=== PATIENT | female | born 1990 | race Caucasian/White ===

== ENCOUNTER → 2018-02-04 | Outpatient (REF) | payer OTHER | LOC: M LAB REF 12:53 | PROVIDERS: ATTEND Physician Assistant | DX: J03.90 Acute tonsillitis, unspecified (principal) ==

== ENCOUNTER → 2019-10-08 | Outpatient (CLI) | payer OTHER ==
--- NOTE | 2019-11-15 16:17 | REP ---
FOCUSED RIGHT BREAST ULTRASOUND: HISTORY: Right breast cyst. FINDINGS: Scanning is performed at 9 o'clock in the right breast in the area of a palpable lump. Six cm from the nipple, there is a small lymph node measuring 1.1 x 0.6 x 0.2 cm. This has central hilar echogenic fatty texture and a thin cortical margin. It has benign features. IMPRESSION: BI-RADS Category 2 benign findings. Clinical follow-up is advised. JUS
--- NOTE | 2019-11-15 16:18 | REP ---
PELVIC ULTRASOUND INCLUDING TRANSABDOMINAL, ENDOVAGINAL, AND DOPPLER ULTRASOUND ASSESSMENT Delay in reporting results from hospital computer system malfunction from malware/ ransomware. The study is performed for irregular menses. FINDINGS: The uterus is anteverted and normal size measuring 9.0 x 3.5 x 4.3 cm. The endometrium is not thickened measuring 7.8 mm. However, there is free fluid in the endocervical canal. The anterior wall of the cervix measures 8.4 mm thickness and posterior wall 7.8 mm. thickness. I suspect the cervix is diffusely thickened. I would recommend gynecology consultation for further evaluation. The right ovary measures 4.7 x 3.9 x 2.9 cm and is upper normal in size. There is a right ovarian cyst measuring 2.5 x 2.4 x 1.8 cm. There is vascular flow in the right ovary with the Doppler resistive index in the parenchymal arteries measuring 0.62. The left ovary measures 2.9 x 1.8 x 2.9 cm and is normal size. There is no dominant mass or cyst. There is vascular flow with the Doppler resistive index in the parenchymal arteries measuring 0.55. There is a small amount of free fluid in the pelvis. IMPRESSION: Probable diffuse enlargement or hypertrophy of the cervix. I would recommend gynecology follow-up for further evaluation. There is free fluid in the endocervical canal. There a right ovarian cyst maximally measuring 2.5 cm and there is a small volume of free fluid in the pelvis. Otherwise, negative pelvic ultrasound. MTDD
== END ==
LOC: M WHC 07:31
PROVIDERS: ATTEND Advanced Practice Midwife
DX: N92.6 Irregular menstruation, unspecified (principal); N60.01 Solitary cyst of right breast; N83.201 Unspecified ovarian cyst, right side

== ENCOUNTER → 2019-10-08 | Outpatient (REF) | payer OTHER | LOC: M SFHCWAGY 12:56 | PROVIDERS: ATTEND Advanced Practice Midwife | DX: Z12.4 Encounter for screening for malignant neoplasm of cervix (principal) ==

== ENCOUNTER → 2019-11-12 | Outpatient (CLI) | payer OTHER ==
[2019-11-12 18:03] LABS: BASO % 0.4 % (0.0-1.0); EOS # 0.1 10^3/uL (0.0-0.5); EOS % 0.6 % (0.0-3.0); HEMATOCRIT 38.4 % (36.0-47.0); LYMPH % 30.4 % (24.0-44.0); MEAN CORPUSCULAR HEMOGLOBIN 31.1 pg (27.0-33.0); MEAN CORPUSCULAR HGB CONC 33.9 g/dl (32.0-36.5); MEAN CORPUSCULAR VOLUME 91.9 fl (80.0-96.0); MONO % 9.9 % (0.0-5.0); NEUTROPHILS # 5.8 10^3/uL (1.5-8.5); NEUTROPHILS % 58.4 % (36.0-66.0); PLATELET COUNT, AUTOMATED 243 10^3/uL (150-450); RED BLOOD COUNT 4.18 10^6/uL (4.00-5.40)
[2019-11-12 19:07] LABS: HEPATITIS C VIRUS ABY INDEX 0.1 INDEX (<0.8); HIV 1&2 SCREEN CENTAUR NEGATIVE (NEGATIVE)
[2019-11-13 21:45] LABS: CHLAMYDIA DNA AMPLIFICATION NEGATIVE (NEGATIVE); GC DNA AMPLIFICATION NEGATIVE (NEGATIVE)
== END ==
LOC: M PLALAB 15:44
PROVIDERS: ATTEND Specialist
DX: Z34.91 Encounter for supervision of normal pregnancy, unspecified, first trimester (principal); Z3A.00 Weeks of gestation of pregnancy not specified

== ENCOUNTER → 2020-02-06 | Outpatient (CLI) | payer OTHER ==
--- NOTE | 2020-02-06 12:35 | REP ---
INDICATION: ANATOMY. COMPARISON: None. TECHNIQUE: Multiple ultrasonographic images of the gravid uterus. FINDINGS: There is a single intrauterine gestation in a breech presentation. The placenta is right lateral with grade 1 maturity. There is no placenta previa. The placental umbilical cord insertion is identified and is located centrally on the placenta. There 3 vessels in the umbilical cord. The umbilical cord insertion is unremarkable. heart rate is 160 beats per minute. The amniotic fluid volume subjectively is normal. The composite ultrasound gestational age today is 21 weeks 1 day with an JOSIE of 06/24/2020. The LMP is unknown. Estimated weight is 332 g, 0 lb-11 oz. This is the 97th percentile for 19 weeks 1 day. The following anatomic structures are identified and are unremarkable: Cranium, cavum septum pellucidum, falx, intracranial ventricles, choroid plexus, cerebellum, cisterna magna, facial profile, orbits, upper lip, cardiac rhythm, cardiac right and left ventricular outflow tracts, diaphragm, stomach, abdominal wall, right and left kidneys, bladder, spine, right and left upper extremities, right and left lower extremities, 3 vessel cord. There is an echogenic focus within the cardiac left ventricle. This is usually artifact from the chorda tendineae. The four-chamber view of the heart is otherwise unremarkable. IMPRESSION: Intrauterine gestation as described. <Electronically signed by Rubio Cruz > 02/06/20 [id number]
== END ==
LOC: M WHC 09:16
PROVIDERS: ATTEND Advanced Practice Midwife
DX: Z34.92 Encounter for supervision of normal pregnancy, unspecified, second trimester (principal); Z3A.21 21 weeks gestation of pregnancy

== ENCOUNTER → 2020-02-07 | Outpatient (REF) | payer OTHER | LOC: M SFHCWAGY 16:47 | PROVIDERS: ATTEND Advanced Practice Midwife | DX: Z3A.17 17 weeks gestation of pregnancy (principal) ==

== ENCOUNTER → 2020-03-06 | Outpatient (CLI) | payer OTHER | LOC: M PLALAB 15:43 | PROVIDERS: ATTEND Obstetrics & Gynecology | DX: Z34.82 Encounter for supervision of other normal pregnancy, second trimester (principal); Z3A.00 Weeks of gestation of pregnancy not specified ==

== ENCOUNTER → 2020-04-10 | Outpatient (REF) | payer OTHER ==
[2020-04-10 14:07] LABS: HEMATOCRIT 34.2 % (36.0-47.0); HEMOGLOBIN 11.3 g/dl (12.0-15.5); MEAN CORPUSCULAR HEMOGLOBIN 31.4 pg (27.0-33.0); PLATELET COUNT, AUTOMATED 179 10^3/uL (150-450); WHITE BLOOD COUNT 11.2 10^3/uL (4.0-10.0)
== END ==
LOC: M PLALAB 10:19
PROVIDERS: ATTEND Advanced Practice Midwife
DX: Z3A.25 25 weeks gestation of pregnancy (principal)

== ENCOUNTER → 2020-06-06 | Outpatient (REF) | payer OTHER ==
[~2020-06-06] MED LIST: COLA100C5 PO; GNP28TAB2 PO; IBUP80TA PO; PERC5TAB12 PO; TUMS500C PO
== END ==
LOC: M SFHCWAGY 17:20
PROVIDERS: ATTEND Advanced Practice Midwife
DX: Z36.89 Encounter for other specified antenatal screening (principal)

== ENCOUNTER → 2021-09-10 | Outpatient (CLI) | payer OTHER ==
[~2021-09-10] MED LIST changes: +PERCOCET PO
[2021-09-12 18:07] LABS: IgG P18 AB Absent (.); IgG P23 AB Absent (.); IgG P28 AB Absent (.); IgG P30 AB Absent (.); IgG P39 AB Absent (.); IgG P41 AB Present (.); IgG P45 AB Absent (.); IgG P66 AB Absent (.); IgG P93 AB Absent (.); IgM P23 AB Absent (.); IgM P39 AB Absent (.); IgM P41 AB Absent (.); LYME IgG WB INTERPRETATION Negative (.); LYME IgM WB INTERPRETATION Negative (.)
== END ==
LOC: M LAB 16:57
DX: A69.20 Lyme disease, unspecified (principal)

== ENCOUNTER → 2021-10-13 | Outpatient (CLI) | payer OTHER | LOC: M LAB 11:03 | PROVIDERS: ATTEND Dermatology | DX: A69.20 Lyme disease, unspecified (principal) ==

== ENCOUNTER → 2022-04-15 | Outpatient (REF) | payer OTHER | LOC: M SFHCWAGY 13:04 | PROVIDERS: ATTEND Nurse Practitioner Family | DX: Z12.4 Encounter for screening for malignant neoplasm of cervix (principal) ==

== ENCOUNTER → 2022-08-26 | Outpatient (CLI) | payer OTHER ==
[2022-08-26 14:54] LABS: HEMOGLOBIN 13.2 g/dl (12.0-15.5); MEAN CORPUSCULAR VOLUME 90.9 fl (80.0-96.0); PLATELET COUNT, AUTOMATED 239 10^3/uL (150-450); WHITE BLOOD COUNT 7.6 10^3/uL (4.0-10.0)
[2022-08-26 15:20] LABS: HIV 1&2 SCREEN NEGATIVE (NEGATIVE)
[2022-08-26 15:28] LABS: HEPATITIS C VIRUS ABY INDEX 0.07 INDEX (<0.8)
[2022-08-26 15:40] LABS: GC DNA AMPLIFICATION NEGATIVE (NEGATIVE)
== END ==
LOC: M PLALAB 09:29
PROVIDERS: ATTEND Specialist
DX: Z34.81 Encounter for supervision of other normal pregnancy, first trimester (principal)

== ENCOUNTER → 2022-09-07 | Outpatient (CLI) | payer OTHER | LOC: M PLALAB 15:32 | PROVIDERS: ATTEND Specialist | DX: Z34.81 Encounter for supervision of other normal pregnancy, first trimester (principal) ==

== ENCOUNTER → 2022-10-14 | Outpatient (CLI) | payer OTHER | LOC: M WHC 14:38 | PROVIDERS: ATTEND Advanced Practice Midwife | DX: Z34.82 Encounter for supervision of other normal pregnancy, second trimester (principal) ==

== ENCOUNTER → 2022-12-20 | Outpatient (REF) | payer OTHER ==
[2022-12-20 18:04] LABS: HEMOGLOBIN 11.1 g/dl (12.0-15.5); MEAN CORPUSCULAR HEMOGLOBIN 31.6 pg (27.0-33.0); MEAN CORPUSCULAR HGB CONC 33.6 g/dl (32.0-36.5); PLATELET COUNT, AUTOMATED 171 10^3/uL (150-450); RED BLOOD COUNT 3.51 10^6/uL (4.00-5.40); WHITE BLOOD COUNT 8.3 10^3/uL (4.0-10.0)
== END ==
LOC: M PLALAB 17:23
PROVIDERS: ATTEND Advanced Practice Midwife
DX: Z34.82 Encounter for supervision of other normal pregnancy, second trimester (principal)

== ENCOUNTER → 2022-12-23 | Outpatient (CLI) | payer OTHER | LOC: M WHC 15:32 | PROVIDERS: ATTEND Advanced Practice Midwife | DX: Z34.82 Encounter for supervision of other normal pregnancy, second trimester (principal); Z3A.29 29 weeks gestation of pregnancy ==

== ENCOUNTER → 2023-02-07 | Outpatient (REF) | payer OTHER | LOC: M SFHCWAGY 16:58 | PROVIDERS: ATTEND Advanced Practice Midwife | DX: Z34.93 Encounter for supervision of normal pregnancy, unspecified, third trimester (principal) ==

== ENCOUNTER → 2023-02-25 | Outpatient (REF) | payer OTHER | LOC: M SFHCWAGY 17:09 | PROVIDERS: ATTEND Obstetrics & Gynecology | DX: R30.0 Dysuria (principal) ==

== ENCOUNTER 2023-03-11 21:25 | Inpatient (IN) | payer OTHER ==
[~2023-03-11] VITALS: Ht 170.2 cm; Wt 65.4 kg
[2023-03-11] MEDS ORDERED: LACTATED RINGER'S 1000 ML IV STA (22:46)
[2023-03-11] MEDS ORDERED: PENICILLIN G POTASSIUM 5 MU IV 5 MU in D5W MINI-BAG PLUS 100 ML IV STA (22:46)
[2023-03-11] MEDS ORDERED: OXYTOCIN DRIP 30 UNITS in IV 1 EA IV PRN (22:50)
[2023-03-11] MEDS ORDERED: TRANEXAMIC ACID INJection 1,000 MG in NS 100 ML IV PRN (22:50)
[2023-03-11] MEDS ORDERED: CARBOPROST TROMETHAMINE 250 MCG/ML AMP IM PRN (22:50)
[2023-03-11] MEDS ORDERED: METHYLERGONOVINE MALEATE 0.2MG/ML 1ML VIAL IM PRN (22:50)
[2023-03-11] MEDS ORDERED: LIDOCAINE 1% MDV 20ML VIAL INFIL PRN (22:50)
[2023-03-11 23:21] LABS: HEMATOCRIT 32.6 % (36.0-47.0); HEMOGLOBIN 11.3 g/dl (12.0-15.5); MEAN CORPUSCULAR HEMOGLOBIN 31.5 pg (27.0-33.0); MEAN CORPUSCULAR HGB CONC 34.7 g/dl (32.0-36.5); MEAN CORPUSCULAR VOLUME 90.8 fl (80.0-96.0); PLATELET COUNT, AUTOMATED 176 10^3/uL (150-450); RED BLOOD COUNT 3.59 10^6/uL (4.00-5.40); WHITE BLOOD COUNT 9.2 10^3/uL (4.0-10.0)
[2023-03-12] VITALS (64 sets, daily range): BP systolic 84–124; BP diastolic 46–81; TEMP 98.7–99.4; O2SAT 97–99
[2023-03-12] MEDS ORDERED: LR 500 ML IV PRN (01:35)
[2023-03-12] MEDS ORDERED: NALOXONE INJ 0.4MG/1ML VIAL IV PRN (01:35)
[2023-03-12] MEDS ORDERED: diphenhydrAMINE 50MG/ML VIAL IV PRN (01:35)
[2023-03-12] MEDS ORDERED: EPIDURAL/PCA KEYS XX PRN (01:35)
[2023-03-12] MEDS: ONDANSETRON 4MG 2ML VIAL IV PRN ×2 (03:05→09:06)
[2023-03-12] MEDS: ePHEDrine SULFATE 25 MG/5 ML(5MG/ML) SYRINGE IVP PRN ×3 (03:05→03:16)
[2023-03-12] MEDS: FENTANYL/ROPIVACAINE/NACL BAG 100 ML EPIDURAL SCH ×2 (03:09→11:28)
[2023-03-12] MEDS: PEN G POT 3,000,000 UNIT/50 ML 3,000,000 UNIT in IV 1 EA IV SCH ×4 (04:05→15:45)
[2023-03-12] MEDS: LR 1,000 ML IV SCH ×3 (04:06→15:08)
[2023-03-12] MEDS ORDERED: METHYLERGONOVINE MALEATE 0.2 MG TAB PO PRN (16:15)
[2023-03-12] MEDS ORDERED: RHOGAM 300MCG (1500IU) INJ IM SCH (16:15)
[2023-03-12] MEDS: ACETAMINOPHEN 500 MG TAB PO PRN (16:21)
[2023-03-12 17:22] LABS: HEMATOCRIT 27.8 % (36.0-47.0); HEMOGLOBIN 9.4 g/dl (12.0-15.5); MEAN CORPUSCULAR HEMOGLOBIN 31.1 pg (27.0-33.0); MEAN CORPUSCULAR HGB CONC 33.8 g/dl (32.0-36.5); MEAN CORPUSCULAR VOLUME 92.1 fl (80.0-96.0); PLATELET COUNT, AUTOMATED 148 10^3/uL (150-450); RED BLOOD COUNT 3.02 10^6/uL (4.00-5.40); WHITE BLOOD COUNT 17.5 10^3/uL (4.0-10.0)
[2023-03-12 17:41] LABS: INR 1.09; PARTIAL THROMBOPLASTIN TIME 26.4 SECONDS (24.8-34.2); PROTHROMBIN TIME 13.8 SECONDS (12.5-14.5)
[2023-03-12 17:48] LABS: ALBUMIN 1.9 G/DL (3.2-5.2); ALKALINE PHOSPHATASE 165 U/L (46-116); ALT/SGPT 14 U/L (7.0-40); AST/SGOT 46 U/L (<34); BILIRUBIN,TOTAL 0.5 MG/DL (0.3-1.2); BLOOD UREA NITROGEN 10 MG/DL (9-23); CARBON DIOXIDE LEVEL 22 MMOL/L (20-31); CHLORIDE LEVEL 111 MMOL/L (98-107); CREATININE FOR GFR 0.73 MG/DL (0.55-1.30); GLOMERULAR FILTRATION RATE > 60.0 (>60); GLUCOSE, FASTING 114 MG/DL (60-100); POTASSIUM SERUM 3.7 MMOL/L (3.5-5.1); SODIUM LEVEL 140 MMOL/L (136-145); TOTAL PROTEIN 4.4 G/DL (5.7-8.2)
[2023-03-13] MEDS: ACETAMINOPHEN 500 MG TAB PO PRN ×2 (02:43→08:28)
[2023-03-13 06:23] VITALS: BP 96/52; O2SAT 99
[2023-03-13 07:03] LABS: HEMATOCRIT 26.5 % (36.0-47.0); HEMOGLOBIN 9.1 g/dl (12.0-15.5); MEAN CORPUSCULAR HEMOGLOBIN 31.1 pg (27.0-33.0); MEAN CORPUSCULAR HGB CONC 34.3 g/dl (32.0-36.5); MEAN CORPUSCULAR VOLUME 90.4 fl (80.0-96.0); PLATELET COUNT, AUTOMATED 144 10^3/uL (150-450); RED BLOOD COUNT 2.93 10^6/uL (4.00-5.40)
[2023-03-13] MEDS: DIBUCAINE 1% OINTMENT 30GM TOP PRN (07:30)
[2023-03-13] MEDS: DOCUSATE SODIUM 100MG CAPSULE PO PRN ×2 (08:25→21:24)
[2023-03-13] MEDS: PRENATAL VITAMINS CHEWABLE TABLET PO SCH (08:25)
[2023-03-13] MEDS: IBUPROFEN 600MG TAB PO PRN ×2 (08:27→21:25)
[2023-03-13 10:00] VITALS: BP 99/55; O2SAT 99
[2023-03-13 10:03] VITALS: BP 96/52; TEMP 98.8; O2SAT 99
[2023-03-13 14:00] VITALS: BP 92/53; O2SAT 97
[2023-03-13 18:00] VITALS: BP 98/55; O2SAT 100
[2023-03-13 22:19] VITALS: BP 135/77; O2SAT 99
[2023-03-14 01:55] VITALS: BP 106/60; O2SAT 98
[2023-03-14 06:16] VITALS: BP 108/57; O2SAT 99
[2023-03-14] MEDS ORDERED: MEASLES,MUMPS,RUBELLA VACCINE INJ (MMR-II) SC.IMMUN ONE (09:00)
[2023-03-14] MEDS: PRENATAL VITAMINS CHEWABLE TABLET PO SCH (09:04)
[2023-03-14] MEDS: DOCUSATE SODIUM 100MG CAPSULE PO PRN (09:07)
[2023-03-14] MEDS: IBUPROFEN 600MG TAB PO PRN (09:07)
[2023-03-14] MEDS: DIBUCAINE 1% OINTMENT 30GM TOP PRN (09:07)
[2023-03-14 10:25] VITALS: BP 121/58; O2SAT 99
[2023-03-14] MEDS ORDERED: IBUP-1022 PO (11:04)
[2023-03-14] MEDS ORDERED: ACET-683 PO (11:04)
[2023-03-14] MEDS ORDERED: ANUSOL HC CREAM 30GM TOP PRN (11:05)
== END 2023-03-14 12:20 | disposition home or self-care (01) | DRG 807 ==
LOC: M LDO 21:25 → M LDI 22:08 → M OBS 03-12 22:39
PROVIDERS: ADMIT Advanced Practice Midwife; ATTEND Obstetrics & Gynecology
PROC: 10E0XZZ Delivery of Products of Conception, External Approach (ICD-10-PCS; principal; 2023-03-12)
PROC: 0HQ9XZZ Repair Perineum Skin, External Approach (ICD-10-PCS; 2023-03-12)
PROC: 30233N1 Transfusion of Nonautologous Red Blood Cells into Peripheral Vein, Percutaneous Approach (ICD-10-PCS; 2023-03-12)
DX: O34.211 Maternal care for low transverse scar from previous cesarean delivery (principal); Z37.0 Single live birth; O99.824 Streptococcus B carrier state complicating childbirth; O76 Abnormality in fetal heart rate and rhythm complicating labor and delivery; O32.6XX0 Maternal care for compound presentation, not applicable or unspecified; O70.0 First degree perineal laceration during delivery; Z3A.40 40 weeks gestation of pregnancy; O99.892 Other specified diseases and conditions complicating childbirth; R55 Syncope and collapse

== ENCOUNTER → 2023-08-24 | Outpatient (CLI) | payer OTHER ==
[~2023-08-24] MED LIST changes: +ACET-683 PO; +IBUP-1022 PO
[2023-08-24 12:04] LABS: BASO % 0.4 % (0.0-1.0); EOS # 0.1 10^3/uL (0.0-0.5); EOS % 1.5 % (0.0-3.0); HEMATOCRIT 41.7 % (36.0-47.0); LYMPH # 2.4 10^3/uL (1.5-5.0); LYMPH % 45.4 % (24.0-44.0); MEAN CORPUSCULAR HEMOGLOBIN 30.2 pg (27.0-33.0); MEAN CORPUSCULAR HGB CONC 33.6 g/dl (32.0-36.5); MEAN CORPUSCULAR VOLUME 89.9 fl (80.0-96.0); MONO # 0.6 10^3/uL (0.0-0.8); MONO % 11.2 % (2.0-8.0); NEUTROPHILS # 2.2 10^3/uL (1.5-8.5); NEUTROPHILS % 41.3 % (36.0-66.0); PLATELET COUNT, AUTOMATED 221 10^3/uL (150-450); RED BLOOD COUNT 4.64 10^6/uL (4.00-5.40); WHITE BLOOD COUNT 5.3 10^3/uL (4.0-10.0)
[2023-08-24 12:32] LABS: ALBUMIN 4.2 G/DL (3.2-5.2); ALKALINE PHOSPHATASE 78 U/L (46-116); ALT/SGPT 15 U/L (7.0-40); AST/SGOT < 8 U/L (<34); BILIRUBIN,TOTAL 0.7 MG/DL (0.3-1.2); BLOOD UREA NITROGEN 21 MG/DL (9-23); CALCIUM LEVEL 9.5 MG/DL (8.5-10.1); CARBON DIOXIDE LEVEL 28 MMOL/L (20-31); CHLORIDE LEVEL 109 MMOL/L (98-107); CHOLESTEROL LEVEL 139 MG/DL (<200); CHOLESTEROL RISK RATIO 1.95 (<5); CREATININE FOR GFR 0.93 MG/DL (0.55-1.30); GLOMERULAR FILTRATION RATE > 60.0 (>60); GLUCOSE, FASTING 69 MG/DL (60-100); HDL CHOLESTEROL 71.2 MG/DL (>40); LDL CHOLESTEROL 61.6 MG/DL (<100); NON-HDL-C 67.8 MG/DL; POTASSIUM SERUM 5.1 MMOL/L (3.5-5.1); SODIUM LEVEL 144 MMOL/L (136-145); THYROID STIMULATING HORMONE 2.338 uIU/ML (0.55-4.78); TOTAL PROTEIN 6.7 G/DL (5.7-8.2); TRIGLYCERIDES LEVEL 31 MG/DL (<150)
== END ==
LOC: M PLALAB 08:39
PROVIDERS: ATTEND Family Medicine
DX: Z00.00 Encounter for general adult medical examination without abnormal findings (principal); R63.6 Underweight

== ENCOUNTER → 2024-05-31 | Outpatient (CLI) | payer OTHER ==
[2024-05-31 16:49] LABS: HEMOGLOBIN A1c 4.9 % (4.0-6.0)
[2024-05-31 16:54] LABS: CARBON DIOXIDE LEVEL 29 MMOL/L (20-31); CHLORIDE LEVEL 105 MMOL/L (98-107); POTASSIUM SERUM 4.7 MMOL/L (3.5-5.1); SODIUM LEVEL 141 MMOL/L (136-145)
[2024-05-31 17:01] LABS: IRON (FE) 69 UG/DL (50-170); PERCENT SATURATION 21.4 % (13.2-45.0); TOTAL IRON BINDING CAPACITY 323 UG/DL (250-425)
[2024-05-31 17:03] LABS: FERRITIN 37.4 NG/ML (7.3-270.7); FREE T4 1.45 NG/DL (0.89-1.76); THYROXINE (T4) 7.4 UG/DL (4.5-10.9)
[2024-05-31 17:04] LABS: FOLATE > 24.00 NG/ML (>5.4); VITAMIN B12 LEVEL 516 PG/ML (211-911)
== END ==
LOC: M LAB 15:52
PROVIDERS: ATTEND Nurse Practitioner Psychiatric/Mental Health
DX: Z79.899 Other long term (current) drug therapy (principal)

== ENCOUNTER → 2024-06-27 | Outpatient (CLI) | payer OTHER ==
[2024-06-27 16:59] LABS: TOTAL 25(OH) VITAMIN D 34.7 NG/ML (20.0-100.0)
== END ==
LOC: M LAB 16:02
PROVIDERS: ATTEND Nurse Practitioner Psychiatric/Mental Health
DX: Z79.899 Other long term (current) drug therapy (principal)

== ENCOUNTER → 2024-10-24 | Outpatient (CLI) | payer BC ==
[~2024-10-24] MED LIST changes: -IBUP-1022 PO; +IBUP600T42 PO
== END ==
LOC: M LAB 10:57
PROVIDERS: ATTEND Nurse Practitioner Psychiatric/Mental Health
DX: Z79.899 Other long term (current) drug therapy (principal)

== ENCOUNTER → 2024-12-20 | Outpatient (REF) | payer BC, OTHER ==
[2024-12-28 15:51] LABS: HPV APTIMA Not Detected (Not Detected)
== END ==
LOC: M SFHCWAGY 13:03
PROVIDERS: ATTEND Advanced Practice Midwife
DX: Z12.4 Encounter for screening for malignant neoplasm of cervix (principal)
CPT/HCPCS: 87624; G0123